=== PATIENT | male | born 1930 | race Caucasian/White ===

== ENCOUNTER 2016-07-10 11:57 | Inpatient (IN) | payer MEDICARE, MEDICAID ==
[2016-07-10 12:04] VITALS: BMI 12.8
[2016-07-10 13:47] LABS: ALB/GLOB RATIO 0.9 (1.0-2.1); ALKALINE PHOSPHATASE 99 U/L (38-126); ALT/SGPT 33 U/L (21-72); AST/SGOT 37 U/L (17-59); BILIRUBIN,TOTAL 0.5 mg/dl (0.2-1.3); BLOOD UREA NITROGEN 12 mg/dl (9-20); CALCIUM 9.2 mg/dL (8.4-10.2); CARBON DIOXIDE 25 mmol/L (22-30); CHLORIDE 98 mmol/L (98-107); GFR AFRICAN-AMERICAN > 60; GLUCOSE,RANDOM 89 mg/dL (75-110); SODIUM 137 mmol/l (132-148); TOTAL PROTEIN 7.7 G/DL (6.3-8.2)
--- NOTE | 2016-07-10 13:51 | ED PDOC ---
HPI: Altered Mental Status Time Seen by Provider: 07/10/16 12:09 Chief Complaint (Nursing): Altered Mental Status Chief Complaint (Provider): dizzy, AMS, poor PO intake History/Exam Limitations: Clinical Condition Onset/Duration Of Symptoms: Unknown Current Symptoms Are (Timing): Still Present Description Of Symptoms: Not At Baseline Usual Baseline: Unknown Exacerbating Factor(s): Unknown Use Of Anticoag/Antiplatlets: Unknown Severity: Moderate Associated Symptoms: Not Eating, Not Drinking. denies: Chills, Vomiting, Diarrhea Additional Complaint(s): 86yo male sent from SNF for altered mental status, poor PO intake and concern for dehydration. History limited as patient has history of dementia. No reports of fever, syncope or diarrhea/vomiting from NH. Past Medical History Reviewed: Historical Data, Nursing Documentation, Vital Signs Vital Signs: Last Vital Signs Temp 97 F L 07/10/16 11:58 Pulse 74 07/10/16 11:58 Resp BP 126/86 07/10/16 11:58 Pulse Ox 99 07/10/16 11:58 - Medical History PMH: Benign Prostatic Hyperplasia, Dementia Denies: Diabetes, Hepatitis, HIV, HTN, Seizures, Sexually Transmitted Disease Other PMH: glaucoma - Surgical History Other surgeries: unknown - Family History Family History: States: Unknown Family Hx - Living Arrangements Living Arrangements: Long Term/Assist Lvng - Social History Current smoker - smoking cessation education provided: No - Immunization History Hx Tetanus Toxoid Vaccination: (unknown) Hx Influenza Vaccination: (unknown) Hx Pneumococcal Vaccination: (unknown) - Home Medications Home Medications: Ambulatory Orders Medication Instructions Recorded Acetaminophen 07/27/13 Alpha Carotene/Aminobenzoic 1 cap PO 07/27/13 [Jillian-Min] Brimonidine 0.2% [Alphagan 0.2% 0 ml 07/27/13 Opht] Docusate Calcium [Tha-Tin] 240 mg PO 07/27/13 Dorzolamide 2% [Trusopt 2% 1 ea OP 07/27/13 Ocumeter Plus] Dutasteride [Avodart] 0.5 mg PO DAILY 07/27/13 Gabapentin 300 mg PO BID 07/27/13 Latanoprost 0.005% Opht [XALATAN 1 drp OP DAILY 07/27/13 2.5 Ml] Magnesium Hydroxide [Milk Of 30 ml PO 07/27/13 Magnesia] Methazolamide [Mzm] 25 mg PO 07/27/13 Peg-400/Propylene Glycol [Systane 1 hiral OP 07/27/13 0.4%-0.3%] Tamsulosin [Flomax] 0.4 mg PO DAILY 07/27/13 Timolol 0.5% Ophth [Timoptic 0.5% 1 drop OP 07/27/13 Ophth Soln] Tramadol Hydrochloride [Tramadol] 50 mg PO 07/27/13 Ciprofloxacin [Cipro] 1 tab PO BID #14 tab 01/12/16 - Allergies Allergies/Adverse Reactions: Allergies Allergy/AdvReac Type Severity Reaction Status Date / Time ammonium alum Allergy RASH Verified 07/10/16 12:00 ammonium lactate Allergy RASH Verified 07/10/16 12:00 [From Lac-Hydrin] cephalexin monohydrate Allergy RASH Verified 07/10/16 12:00 [From Keflex] Review of Systems Review Of Systems: ROS cannot be obtained secondary to pt's inabilty to answer questions. Physical Exam - Reviewed Nursing Documentation Reviewed: Yes Vital Signs Reviewed: Yes - Physical Exam Appears: Positive for: Non-toxic (ill but nontoxic appearing, dry, confused, frail/ cachexia) Head Exam: Positive for: ATRAUMATIC, NORMAL INSPECTION, NORMOCEPHALIC Skin: Positive for: Normal Color, Warm, DRY Eye Exam: Positive for: EOMI, Normal appearance, PERRL ENT: Positive for: Normal ENT Inspection Neck: Positive for: Normal, Painless ROM Cardiovascular/Chest: Positive for: Regular Rate, Rhythm Respiratory: Positive for: CNT, Normal Breath Sounds Gastrointestinal/Abdominal: Positive for: Bowel Sounds, Soft. Negative for: Tenderness, Guarding Back: Positive for: Normal Inspection Extremity: Positive for: Normal ROM, Other (muscle wasting b/l) Neurologic/Psych: Positive for: Alert, Other (generalized weakness, speech intact but confused). Negative for: Aphasia - Laboratory Results Result Diagrams: 07/10/16 13:32 - ECG O2 Sat by Pulse Oximetry: 99 Medical Decision Making Medical Decision Making: workup initiated for AMS/ r/o source infection, dehydration, acute neurologic process. IVF iniated. CT brain ordered. CXR: Accession No. : [id number] Patient Name / ID : MARK CHOI / [id number] Exam Date : 07/10/2016 13:03:19 ( Approved ) Study Comment : Sex / Age : M / 86Y Creator : Lucio Melgar MD Dictator : Lucio Melgar MD Sole Leveling Machine Operator : Lpn Per Diem : Lucio Melgar MD Approver2 : Report Date : 07/10/2016 13:53:14 My Comment : HISTORY: SOB COMPARISON: Comparison made with chest radiograph and CT scan chest 07/21/2011 and 2011 respectively. FINDINGS: LUNGS: Re- demonstrated is elevation left hemidiaphragm possibly due to eventration and exacerbated by of multiple dilated/air-filled loops of on bowel right basilar atelectasis and or scarring with questionable effusion. There is slight volume loss of the right linda thorax with shift of the mediastinum from right to left. . There is also a vague opacity left mid/ upper lung field that could represent atelectasis and or infiltrate. PLEURA: No significant pleural effusion identified, no pneumothorax apparent. CARDIOVASCULAR: Heart remains enlarged. Aorta is ectatic and uncoiled. OSSEOUS STRUCTURES: No significant abnormalities. VISUALIZED UPPER ABDOMEN: Normal. OTHER FINDINGS: None. IMPRESSION: Re- demonstrated is elevation left hemidiaphragm possibly due to eventration and exacerbated by of multiple dilated/air-filled loops of on bowel right basilar atelectasis and or scarring with questionable effusion. There is slight volume loss of the right linda thorax with shift of the mediastinum from right to left. . There is also a vague opacity left mid/ upper lung field that could represent atelectasis and or infiltrate. Will obtain CT imaging when Associate Product Integrity Engineer returned. Endorse Dr Allred 2pm pending CT, remainder labs and likely admission/dispo Disposition - Clinical Impression Clinical Impression: Altered mental status - Patient ED Disposition Is Patient to be Admitted: Transfer of Care - Disposition Disposition: Transfer of Care Disposition Time: 13:56 Condition: GUARDED Patient Signed Over To: Paolo Allred
--- NOTE | 2016-07-10 13:55 | RAD ---
HISTORY: SOB COMPARISON: Comparison made with chest radiograph and CT scan chest 07/21/2011 and 07/26/2011 respectively. FINDINGS: LUNGS: Re- demonstrated is elevation left hemidiaphragm possibly due to eventration and exacerbated by of multiple dilated/air-filled loops of on bowel right basilar atelectasis and or scarring with questionable effusion. There is slight volume loss of the right linda thorax with shift of the mediastinum from right to left. . There is also a vague opacity left mid/ upper lung field that could represent atelectasis and or infiltrate. PLEURA: No significant pleural effusion identified, no pneumothorax apparent. CARDIOVASCULAR: Heart remains enlarged. Aorta is ectatic and uncoiled. OSSEOUS STRUCTURES: No significant abnormalities. VISUALIZED UPPER ABDOMEN: Normal. OTHER FINDINGS: None. IMPRESSION: Re- demonstrated is elevation left hemidiaphragm possibly due to eventration and exacerbated by of multiple dilated/air-filled loops of on bowel right basilar atelectasis and or scarring with questionable effusion. There is slight volume loss of the right linda thorax with shift of the mediastinum from right to left. . There is also a vague opacity left mid/ upper lung field that could represent atelectasis and or infiltrate.
[2016-07-10 14:00] LABS: BASO # 0.1 K/uL (0.0-0.2); BASO % 1.3 % (0.0-2.0); EOS % 0.6 % (0.0-4.0); LYMPH # 1.3 K/uL (1.0-4.3); LYMPH % 17.4 % (20.0-40.0); MEAN CELL VOLUME 92.8 fl (80.0-94.0); MEAN CORPUSCULAR HEMOGLOBIN 30.6 pg (27.0-31.0); MEAN PLATELET VOLUME 7.1 fl (7.2-11.7); MONO # 0.6 K/uL (0.0-0.8); MONO % 7.3 % (0.0-10.0); NEUT # 5.6 K/uL (1.8-7.0); NEUT % 73.4 % (50.0-75.0); NRBC % 0.1 % (0.0-0.0); RED CELL DISTRIBUTION WIDTH 17.2 % (11.5-14.5); WHITE BLOOD COUNT 7.7 K/uL (4.8-10.8)
--- NOTE | 2016-07-10 14:26 | CT ---
PROCEDURE: CT HEAD WITHOUT CONTRAST. HISTORY: r/o ICH COMPARISON: None available. TECHNIQUE: Axial computed tomography images were obtained through the head/brain without intravenous contrast. This CT scan was performed using one or more of the following dose reduction techniques: Automated exposure control, adjustment of the mA and or kV according to patient's size and or use of iterative technique Radiation dose: Total exam DLP = 884.5 mGy-cm. FINDINGS: HEMORRHAGE: No acute parenchymal, subarachnoid or extra-axial hemorrhage. BRAIN: Moderate diffuse/ confluent chronic white matter ischemic changes periventricular white matter ischemic changes seen extending into the deep and subcortical white matter both cerebral hemispheres. There also appears to be some extension of these changes into white matter tracts of both basal nuclei. Mild vascular calcifications are present. VENTRICLES: Moderate generalized volume loss CALVARIUM: No acute calvarial fracture seen. PARANASAL SINUSES: Unremarkable as visualized. No significant inflammatory changes. MASTOID AIR CELLS: Unremarkable as visualized. No inflammatory changes. OTHER FINDINGS: Status post bilateral cataract surgery. There also on small calcifications along the insertion sites of the medial and lateral recti and musculature bilaterally. IMPRESSION: No acute intracranial hemorrhage. Moderate chronic white matter ischemic changes with a ischemic changes seen extending into the basal nuclei as well. Moderate generalized volume loss
--- NOTE | 2016-07-10 14:34 | ED PDOC ---
- Laboratory Results Result Diagrams: 07/11/16 05:30 07/10/16 13:32 - ECG O2 Sat by Pulse Oximetry: 99 - Radiology X-Ray: Viewed By Me, Read By Radiologist X-Ray Interpretation: Infiltrates - CT Scan/US CT head Other Rad Studies (CT/US): Read By Radiologist, Radiology Report Reviewed Other Rad Interpretation: no acute findings - Progress Re-evaluation Time: 16:50 Condition: Re-examined, Unchanged Medical Decision Making Medical Decision Making: Time: 1400 Patient signed out by Dr. Love pending re-evaluation and final disposition Patient refuses CT abdomen at this time. Scribe Attestation: Documented by Sharri Beyer acting as a scribe for Paolo Allred MD MD Scribe Attestation: All medical record entries made by the Scribe were at my direction and personally dictated by me. I have reviewed the chart and agree that the record accurately reflects my personal performance of the history, physical exam, medical decision making, and the department course for this patient. I have also personally directed, reviewed, and agree with the discharge instructions and disposition. Disposition Discussed With : Raad Beyer Doctor Will See Patient In The: ED - Clinical Impression Clinical Impression: Altered mental status, UTI (urinary tract infection), Lung infiltrate - POA Present On Arrival: None - Disposition Disposition: Admitted as In-Patient Disposition Time: 17:00 Condition: FAIR
[2016-07-10] MEDS ORDERED: Iohexol 240 (50 ml) PO ONE (15:15)
[2016-07-10] MEDS ORDERED: Iohexol 240 (50 ml) ONE (15:29)
[2016-07-10 15:57] LABS: RBC URINE 6 /hpf (0-3); URINE BILIRUBIN NEGATIVE (NEGATIVE); URINE BLOOD NEGATIVE (NEGATIVE); URINE COLOR YELLOW (YELLOW); URINE GLUCOSE (UA) NEG (Normal); URINE KETONE NEGATIVE (NEGATIVE); URINE LEUKOCYTE ESTERASE LARGE Leu/uL (Negative); URINE PROTEIN NEGATIVE (NEGATIVE); URINE UROBILINOGEN 0.2-1.0 mg/dL (0.2-1.0); WBC URINE 42 /hpf (0-5)
[2016-07-10] MEDS ORDERED: Sodium Chloride 0.9% 0 ML IV ONE (18:32)
[2016-07-10] MEDS ORDERED: Iohexol 300 100 ML IJ ONE (18:32)
[2016-07-10] MEDS ORDERED: Magnesium Hydroxide Susp 30 ml UD PO PRN ×2 (22:29→22:51)
--- NOTE | 2016-07-10 22:32 | CP.PCM.HP ---
History of Present Illness - History of Present Illness History of Present Illness: CC: AMS 86 y/o M, brought to ER [facility] via EMS to be evaluated for AMS. Unknown onset. PT was sent from [facility] on 07/10/16 after they noticed Pt with increased confusion and worsening symptoms of poor po intake, as per NH, Pt no drinking or eating. Limited history information 2nd to Pt inability to answer questions. Do not shows: Fever, chills, n/v/d, abdominal pain, CP, SOB. PMHx: Dementia, Chronic venous insufficiency, Glaucoma ( Legally blind b/l), chronic back pain, Hx of falls. CXR + Elevation left hemidiaphragm, PNA CT Head: No acute intracranial hemorrhage. Present on Admission - Present on Admission Any Indicators Present on Admission: No Review of Systems - Review of Systems Systems not reviewed;Unavailable: Acuity of Condition, Altered Mental Status Past Patient History - Infectious Disease Hx of Infectious Diseases: None - Past Medical History & Family History Pertinent Family History: unknown - Past Social History Smoking Status: Unknown If Ever Smoked Alcohol: None Drugs: Denies Home Situation {Lives}: Assisted - CARDIAC Hx Cardiac Disorders: No - PULMONARY Hx Respiratory Disorders: No - NEUROLOGICAL Hx Neurological Disorder: Yes (dementia) - HEENT Hx HEENT Problems: Yes - RENAL Hx Chronic Kidney Disease: No - ENDOCRINE/METABOLIC Hx Endocrine Disorders: No - HEMATOLOGICAL/ONCOLOGICAL Hx Blood Disorders: No - INTEGUMENTARY Hx Dermatological Problems: No - MUSCULOSKELETAL/RHEUMATOLOGICAL Hx Musculoskeletal Disorders: No - GASTROINTESTINAL Hx Gastrointestinal Disorders: Yes Hx Constipation: Yes - GENITOURINARY/GYNECOLOGICAL Hx Genitourinary Disorders: Yes (bph) - PSYCHIATRIC Hx Psychophysiologic Disorder: No - SURGICAL HISTORY Hx Surgeries: No Hx Abdominal Aortic Aneurysm Repair: No - ANESTHESIA Hx Anesthesia: No Meds Allergies/Adverse Reactions: Allergies Allergy/AdvReac Type Severity Reaction Status Date / Time ammonium alum Allergy RASH Verified 07/10/16 12:00 ammonium lactate Allergy RASH Verified 07/10/16 12:00 [From Lac-Hydrin] cephalexin monohydrate Allergy RASH Verified 07/10/16 12:00 [From Keflex] Physical Exam - Constitutional Appears: No Acute Distress - Head Exam Head Exam: NORMAL INSPECTION - Eye Exam Eye Exam: PERRL Pupil Exam: Mydriatic - ENT Exam ENT Exam: Normal Oropharynx - Neck Exam Neck exam: Positive for: Normal Inspection - Respiratory Exam Respiratory Exam: Rhonchi (scattered) - Cardiovascular Exam Cardiovascular Exam: REGULAR RHYTHM - GI/Abdominal Exam GI & Abdominal Exam: Normal Bowel Sounds, Soft - Extremities Exam Additional comments: Discoloration lower extremities, L heel redness. - Back Exam Additional comments: Sacrum redness. - Neurological Exam Additional comments: Generalized weakness. confused, disoriented - Skin Skin Exam: Warm Results - Vital Signs Recent Vital Signs: Last Vital Signs Temp 97 F L 07/10/16 11:58 Pulse 96 H 07/10/16 20:00 Resp 16 07/10/16 20:00 BP 130/90 07/10/16 20:00 Pulse Ox 99 07/10/16 20:39 reviewed J.P. - Labs Result Diagrams: 07/12/16 08:30 07/12/16 08:30 Labs: reviewed J.P. - EKG Data EKG comments: reviewed J.P. - Imaging and Cardiology Chest x-ray Status: Report reviewed by me (Audrey) CT scan - head Status: Report reviewed by me (Audrey) Assessment & Plan - Assessment and Plan (Free Text) Assessment: AMS Acute high PNA acute high UTI Acute high Dementia Chronic Chronic venous insufficiency Chronic. BPH Chronic Constipation Chronic. Plan: Continue Levaquin, tramadol, f/u Blood and U C-S, f/u Psychiatric and Neuro consult. - Date & Time Date: 07/10/16
[2016-07-11] MEDS ORDERED: TRAMADOL HYDROCHLORIDE 50 MG PO SCH (04:00)
[2016-07-11 07:37] LABS: HEMATOCRIT 40.2 % (35.0-51.0); MEAN CELL VOLUME 92.6 fl (80.0-94.0); MEAN CORPUSCULAR HGB CONC 33.4 g/dL (33.0-37.0); WHITE BLOOD COUNT 6.5 K/uL (4.8-10.8)
[2016-07-11 07:45] LABS: T4 5.95 ug/dl (5.5-11.0)
[2016-07-11 07:59] LABS: THYROID STIMULATING HORMONE 7.35 mIU/ML (0.46-4.68)
[2016-07-11] MEDS ORDERED: BULGARICUS PO SCH (09:00)
[2016-07-11] MEDS ORDERED: ACIDOPHILUS PO SCH (09:00)
[2016-07-11] MEDS ORDERED: [UNRECOGNIZED DRUG - OTHER] PO SCH (09:00)
[2016-07-11] MEDS ORDERED: DOCUSATE CALCIUM 240 MG PO SCH (09:00)
[2016-07-11] MEDS ORDERED: METHAZOLAMIDE 25 MG PO SCH (09:00)
--- NOTE | 2016-07-11 09:02 | CARD ---
APPROVED REPORT EKG Measurement Heart [id number] <Conclusion> Normal sinus rhythm Right bundle branch block Possible Lateral infarct, age undetermined Abnormal ECG
[2016-07-11] MEDS: Multivitamin With Minerals Tab PO SCH (09:28)
[2016-07-11] MEDS: Enoxaparin 40 mg Syringe SC SCH (09:30)
--- NOTE | 2016-07-11 09:41 | CP.PCM.CON ---
History of Present Illness - History of Present Illness History of Present Illness: Mr. Ly is an 86-year-old man with a past medical history of dementia who was referred to the ED from a snf facility after they noted he was more confused than usual, and has been having decreased PO intake with likely dehydration. Today, the patient was alert and awake. He recalled that yesterday was his birthday and hat he turned 86. He was pleasant and conversant and said that he has trouble with eating due to gastric pain and constipation. He admitted to me that he is completely blind and may get confused sometimes due to the lack of visual input. He did not have any other complaints. Review of Systems - Review of Systems All systems: reviewed and no additional remarkable complaints except - Constitutional Constitutional: As Per HPI - EENT Eyes: As Per HPI Nose/Mouth/Throat: Dry Mouth, Dysphagia, Halitosis - Cardiovascular Cardiovascular: absent: As Per HPI, Acrocyanosis, Chest Pain, Chest Pain at Rest , Chest Pain with Activity, Claudication, Diaphoresis, Dyspnea, Dyspnea on Exertion, Edema, Irregular Heart Rhythm, Pain Radiating to Arm/Neck/Jaw, Leg Edema, Leg Ulcers, Lightheadedness, Orthopnea, Palpitations, Paroxysmal Nocturnal Dyspnea, Pedal Edema, Radiating Pain, Rapid Heart Rate, Slow Heart Rate, Syncope, Other - Respiratory Respiratory: Cough, Dyspnea on Exertion, Chest Congestion - Neurological Neurological: As Per HPI Past Patient History - Infectious Disease Hx of Infectious Diseases: None - Past Medical History & Family History Past Medical History?: Yes - Past Social History Smoking Status: Unknown If Ever Smoked - CARDIAC Hx Cardiac Disorders: No - PULMONARY Hx Respiratory Disorders: No - NEUROLOGICAL Hx Neurological Disorder: Yes (dementia) - HEENT Hx HEENT Problems: Yes Hx Blind: Yes Hx Glaucoma: Yes (BOTH EYES) - RENAL Hx Chronic Kidney Disease: No - ENDOCRINE/METABOLIC Hx Endocrine Disorders: No - HEMATOLOGICAL/ONCOLOGICAL Hx Blood Disorders: No - INTEGUMENTARY Hx Dermatological Problems: No Other/Comment: chronic venous insufficiency - MUSCULOSKELETAL/RHEUMATOLOGICAL Hx Falls: Yes - GENITOURINARY/GYNECOLOGICAL Hx Genitourinary Disorders: Yes (bph) Hx Prostate Problems: Yes (BPH) - PSYCHIATRIC Hx Psychophysiologic Disorder: No - SURGICAL HISTORY Hx Surgeries: No Hx Abdominal Aortic Aneurysm Repair: No - ANESTHESIA Hx Anesthesia: No Meds Allergies/Adverse Reactions: Allergies Allergy/AdvReac Type Severity Reaction Status Date / Time ammonium alum Allergy RASH Verified 07/10/16 12:00 ammonium lactate Allergy RASH Verified 07/10/16 12:00 [From Lac-Hydrin] cephalexin monohydrate Allergy RASH Verified 07/10/16 12:00 [From Keflex] - Medications Medications: Current Medications Bisacodyl (Dulcolax) 10 mg MO DAILY PRN PRN Reason: Constipation Brimonidine Tartrate (Alphagan 0.2% Opht) 1 drop OU Q12 RAJINDER Docusate Sodium (Colace) 200 mg PO DAILY RAJINDER Dorzolamide HCl (Trusopt) 1 drop OU Q12 RAJINDER Enoxaparin Sodium (Lovenox) 40 mg SC DAILY RAJINDER PRN Reason: Protocol Home Med (Dutasteride [Avodart]) 0.5 mg PO DAILY RAJINDER Levofloxacin/Dextrose (Levaquin 750mg) 150 mls @ 100 mls/hr IVPB DAILY RAJINDER Lactobacillus Acidophilus (Bacid Acidophilus) 1 cap PO BID RAJINDER Latanoprost (Xalatan Opht) 1 drop OU DAILY RAJINDER Magnesium Hydroxide (Milk Of Magnesia) 30 ml PO DAILY PRN PRN Reason: Constipation Methazolamide (Neptazane) 25 mg PO DAILY [facility] Multivitamins/Minerals (Therapeutic-M Tab) 1 tab PO DAILY RAJINDER Tamsulosin HCl (Flomax) 0.4 mg PO DAILY RAJINDER Timolol Maleate (Timoptic 0.5% Ophth Soln) 1 drop OU BID RAJINDER Tramadol HCl (Ultram) 50 mg PO Q6 PRN PRN Reason: Pain, moderate (4-7) Physical Exam - Constitutional Appears: Well - Head Exam Head Exam: ATRAUMATIC, NORMAL INSPECTION, NORMOCEPHALIC - Eye Exam Eye Exam: EOMI, Normal appearance, PERRL. absent: Conjunctival injection, Nystagmus, Periorbital swelling, Periorbital tenderness, Scleral icterus - Cardiovascular Exam Cardiovascular Exam: REGULAR RHYTHM - Neurological Exam Neurological exam: Alert, CN II-XII Intact, Normal Gait, Oriented x3, Reflexes Normal Additional comments: Recalls 1/3 objects after delay, spells WORLD forward, not backward, oriented to place, time and person. Results - Vital Signs Recent Vital Signs: Last Vital Signs Temp 97.6 F 07/11/16 08:09 Pulse 80 07/11/16 08:09 Resp 20 07/11/16 08:09 BP 115/82 07/11/16 08:09 Pulse Ox 96 07/11/16 08:09 - Labs Result Diagrams: 07/11/16 05:30 07/10/16 13:32 Labs: Laboratory Results - last 24 hr 07/11/16 05:30 WBC 6.5 RBC 4.34 L Hgb 13.4 Hct 40.2 MCV 92.6 MCH 31.0 MCHC 33.4 RDW 17.0 H Plt Count 339 Triglycerides 104 Cholesterol 209 H LDL Cholesterol Direct 123 HDL Cholesterol 47 Vitamin B12 949 H Thyroxine (T4) 5.95 TSH 3rd Generation 7.35 H - Imaging and Cardiology CT scan - head Status: Image reviewed by me, Report reviewed by me (Chronic ischemic changes and age related atrophy) Assessment & Plan (1) Altered mental status Assessment and Plan: Likely toxic-metabolic in origin. Treat underlying condition. Could also be due to sun-downing with underlying dementia. Continue conservative management and care. Rehydrate, provide adequate nutrition with appropriate protein per nutritional consultation. Status: Acute Priority: Medium (2) Dementia Assessment and Plan: Continue conservative management and provide assistance with more auditory support since the patient is blind. Status: Chronic
[2016-07-11] MEDS: Dorzolamide 2% Ophth Soln OU SCH ×2 (11:14→21:54)
[2016-07-11] MEDS: Brimonidine 0.2% 50 DROP/5 ML BOTTLE OU SCH ×2 (11:15→21:54)
[2016-07-11] MEDS: Lactobacillus Acidophilus 500 MU Cap PO SCH ×2 (11:16→17:35)
[2016-07-11] MEDS: Latanoprost 0.005% Opht SOUTION OU SCH (17:37)
--- NOTE | 2016-07-11 19:37 | CP.PCM.PN ---
Subjective - Subjective Subjective: Confused Objective - Vital Signs/Intake and Output Vital Signs (last 24 hours): Temp Pulse Resp BP Pulse Ox 97.4 F L 106 H 20 119/79 99 07/11/16 17:17 07/11/16 17:17 07/11/16 17:17 07/11/16 17:17 07/11/16 17:17 - Medications Medications: Current Medications Bisacodyl (Dulcolax) 10 mg GA DAILY PRN PRN Reason: Constipation Brimonidine Tartrate (Alphagan 0.2% Opht) 1 drop OU Q12 [facility] Last Admin: 07/11/16 11:15 Dose: 1 drop Docusate Sodium (Colace) 200 mg PO DAILY [facility] Last Admin: 07/11/16 09:29 Dose: 200 mg Dorzolamide HCl (Trusopt) 1 drop OU Q12 [facility] Last Admin: 07/11/16 11:14 Dose: 1 drop Enoxaparin Sodium (Lovenox) 40 mg SC DAILY [facility] PRN Reason: Protocol Last Admin: 07/11/16 09:30 Dose: 40 mg Home Med (Dutasteride [Avodart]) 0.5 mg PO DAILY [facility] Levofloxacin/Dextrose (Levaquin 750mg) 150 mls @ 100 mls/hr IVPB DAILY [facility] Last Admin: 07/11/16 09:29 Dose: 100 mls/hr Lactobacillus Acidophilus (Bacid Acidophilus) 1 cap PO BID [facility] Last Admin: 07/11/16 17:35 Dose: 1 cap Latanoprost (Xalatan Opht) 1 drop OU DAILY [facility] Last Admin: 07/11/16 17:37 Dose: 1 drop Magnesium Hydroxide (Milk Of Magnesia) 30 ml PO DAILY PRN PRN Reason: Constipation Methazolamide (Neptazane) 25 mg PO DAILY [facility] Last Admin: 07/11/16 09:31 Dose: 25 mg Multivitamins/Minerals (Therapeutic-M Tab) 1 tab PO DAILY [facility] Last Admin: 07/11/16 09:28 Dose: 1 tab Tamsulosin HCl (Flomax) 0.4 mg PO DAILY [facility] Last Admin: 07/11/16 09:28 Dose: 0.4 mg Timolol Maleate (Timoptic 0.5% Ophth Soln) 1 drop OU BID [facility] Last Admin: 07/11/16 17:36 Dose: 1 drop Tramadol HCl (Ultram) 50 mg PO Q6 PRN PRN Reason: Pain, moderate (4-7) - Labs Labs: 07/11/16 05:30 - Constitutional Appears: No Acute Distress - Head Exam Head Exam: NORMAL INSPECTION - Eye Exam Eye Exam: PERRL - ENT Exam ENT Exam: Normal Exam - Neck Exam Neck Exam: Normal Inspection - Respiratory Exam Respiratory Exam: Rhonchi Additional comments: scattered - Cardiovascular Exam Cardiovascular Exam: REGULAR RHYTHM - GI/Abdominal Exam GI & Abdominal Exam: Soft, Normal Bowel Sounds - Extremities Exam Additional comments: Chronic legs skin changes - Back Exam Back Exam: NORMAL INSPECTION - Neurological Exam Additional comments: Confused , no focal motor/sensory deficit - Psychiatric Exam Additional comments: confused - Skin Skin Exam: Warm Assessment and Plan - Assessment and Plan (Free Text) Plan: AMS PNA UTI Dementia Chronic Venous insufficiency BPH Plan: Continue Lorazepam , Tramadol , Levaquin and rest of treatment
[2016-07-12 09:14] LABS: HEMATOCRIT 44.1 % (35.0-51.0); MEAN CELL VOLUME 92.5 fl (80.0-94.0); MEAN CORPUSCULAR HEMOGLOBIN 30.7 pg (27.0-31.0); MEAN CORPUSCULAR HGB CONC 33.2 g/dL (33.0-37.0); RED CELL DISTRIBUTION WIDTH 16.8 % (11.5-14.5); WHITE BLOOD COUNT 5.8 K/uL (4.8-10.8)
[2016-07-12 09:36] LABS: ALB/GLOB RATIO 0.9 (1.0-2.1); ALKALINE PHOSPHATASE 113 U/L (38-126); ALT/SGPT 25 U/L (21-72); AST/SGOT 31 U/L (17-59); BILIRUBIN,TOTAL 0.7 mg/dl (0.2-1.3); BLOOD UREA NITROGEN 15 mg/dl (9-20); CALCIUM 9.6 mg/dL (8.4-10.2); CARBON DIOXIDE 23 mmol/L (22-30); CHLORIDE 98 mmol/L (98-107); GFR AFRICAN-AMERICAN > 60; GLUCOSE,RANDOM 109 mg/dL (75-110); POTASSIUM 3.9 MMOL/L (3.6-5.0); SODIUM 137 mmol/l (132-148); TOTAL PROTEIN 7.9 G/DL (6.3-8.2)
[2016-07-12] MEDS: Enoxaparin 40 mg Syringe SC SCH (10:52)
[2016-07-12] MEDS: Brimonidine 0.2% 50 DROP/5 ML BOTTLE OU SCH ×2 (10:54→20:40)
[2016-07-12] MEDS: Multivitamin With Minerals Tab PO SCH (10:55)
[2016-07-12] MEDS: Dorzolamide 2% Ophth Soln OU SCH ×2 (10:58→20:45)
[2016-07-12] MEDS: Lactobacillus Acidophilus 500 MU Cap PO SCH ×2 (11:03→18:53)
[2016-07-12] MEDS: Latanoprost 0.005% Opht SOUTION OU SCH (14:07)
--- NOTE | 2016-07-12 15:13 | CP.PCM.PN ---
Subjective - Date & Time of Evaluation Date of Evaluation: 07/12/16 Time of Evaluation: 15:10 - Subjective Subjective: No AD , confused Objective - Vital Signs/Intake and Output Vital Signs (last 24 hours): Temp Pulse Resp BP Pulse Ox 97.7 F 63 20 121/85 95 07/12/16 07:48 07/12/16 09:00 07/12/16 07:48 07/12/16 09:00 07/12/16 07:48 - Medications Medications: Current Medications Bisacodyl (Dulcolax) 10 mg OK DAILY PRN PRN Reason: Constipation Brimonidine Tartrate (Alphagan 0.2% Opht) 1 drop OU Q12 [facility] Last Admin: 07/12/16 10:54 Dose: 1 drop Docusate Sodium (Colace Liquid) 200 mg PO DAILY [facility] Last Admin: 07/12/16 14:10 Dose: 200 mg Dorzolamide HCl (Trusopt) 1 drop OU Q12 [facility] Last Admin: 07/12/16 10:58 Dose: 1 drop Enoxaparin Sodium (Lovenox) 40 mg SC DAILY [facility] PRN Reason: Protocol Last Admin: 07/12/16 10:52 Dose: 40 mg Home Med (Dutasteride [Avodart]) 0.5 mg PO DAILY [facility] Levofloxacin/Dextrose (Levaquin 750mg) 150 mls @ 100 mls/hr IVPB DAILY [facility] Last Admin: 07/12/16 13:41 Dose: 100 mls/hr Lactobacillus Acidophilus (Bacid Acidophilus) 1 cap PO BID [facility] Last Admin: 07/12/16 11:03 Dose: 1 cap Latanoprost (Xalatan Opht) 1 drop OU DAILY [facility] Last Admin: 07/12/16 14:07 Dose: 1 drop Lorazepam (Ativan) 0.5 mg IVP Q4 PRN PRN Reason: Agitation Magnesium Hydroxide (Milk Of Magnesia) 30 ml PO DAILY PRN PRN Reason: Constipation Methazolamide (Neptazane) 25 mg PO DAILY [facility] Last Admin: 07/12/16 10:55 Dose: 25 mg Multivitamins/Minerals (Therapeutic-M Tab) 1 tab PO DAILY [facility] Last Admin: 07/12/16 10:55 Dose: 1 tab Tamsulosin HCl (Flomax) 0.4 mg PO DAILY [facility] Last Admin: 07/12/16 10:55 Dose: 0.4 mg Timolol Maleate (Timoptic 0.5% Ophth Soln) 1 drop OU BID [facility] Last Admin: 07/12/16 10:55 Dose: 1 drop Tramadol HCl (Ultram) 50 mg PO Q6 PRN PRN Reason: Pain, moderate (4-7) Last Admin: 07/11/16 22:05 Dose: 50 mg - Labs Labs: 07/12/16 08:30 07/12/16 08:30 - Constitutional Appears: Chronically Ill - Head Exam Head Exam: NORMAL INSPECTION - Eye Exam Eye Exam: PERRL - ENT Exam ENT Exam: Normal Exam - Neck Exam Neck Exam: Normal Inspection - Respiratory Exam Respiratory Exam: Rhonchi (scattered) - Cardiovascular Exam Cardiovascular Exam: REGULAR RHYTHM - GI/Abdominal Exam GI & Abdominal Exam: Soft, Normal Bowel Sounds - Extremities Exam Additional comments: chronic skin legs changes - Back Exam Back Exam: NORMAL INSPECTION - Neurological Exam Additional comments: confused , no focal motor/sensory deficit , generalized weakness - Psychiatric Exam Additional comments: confused - Skin Skin Exam: Warm Assessment and Plan - Assessment and Plan (Free Text) Assessment: AMS PNA UTI Dementia Chronic venous insufficiency BPH Constipation Plan: Continue Levaquin , Tramadol and rest of treatment
[2016-07-13] MEDS: Latanoprost 0.005% Opht SOUTION OU SCH (08:08)
[2016-07-13] MEDS: Lactobacillus Acidophilus 500 MU Cap PO SCH ×2 (08:11→16:16)
[2016-07-13] MEDS: Enoxaparin 40 mg Syringe SC SCH (08:11)
[2016-07-13] MEDS: Dorzolamide 2% Ophth Soln OU SCH ×2 (08:13→20:48)
[2016-07-13] MEDS: Multivitamin With Minerals Tab PO SCH (08:17)
[2016-07-13] MEDS: Brimonidine 0.2% 50 DROP/5 ML BOTTLE OU SCH ×2 (08:17→20:51)
[2016-07-13 08:37] VITALS: RESP 20
--- NOTE | 2016-07-13 14:34 | CP.PCM.CON ---
History of Present Illness - History of Present Illness History of Present Illness: psychiatry consult ordered by dr. lyles reason: ms changes hpi: pt with dementia. he is in a longterm. he is admitted medically with a uti. not on psych meds. he has also been seen recently by neurology. he is having some sundowning. he is a poor historian. past psych: dementia. not on psych meds social: lives in longterm medical: see dr. lyles's note mse: alert, oriented to self. denies suicidal thoughts. denies a/v hallucinations. memory is impaired. poor i/j. assessment: dementia without behavioral disturbance delirium - mild recommendation: low dose risperdal for agitation being followed by neurology will sign off Past Patient History - Infectious Disease Hx of Infectious Diseases: None - Past Medical History & Family History Past Medical History?: Yes - Past Social History Smoking Status: Unknown If Ever Smoked Alcohol: None Drugs: Denies Home Situation {Lives}: Long-Term - CARDIAC Hx Cardiac Disorders: No - PULMONARY Hx Respiratory Disorders: No - NEUROLOGICAL Hx Neurological Disorder: Yes (dementia) - HEENT Hx HEENT Problems: Yes - RENAL Hx Chronic Kidney Disease: No - ENDOCRINE/METABOLIC Hx Endocrine Disorders: No - HEMATOLOGICAL/ONCOLOGICAL Hx Blood Disorders: No - INTEGUMENTARY Hx Dermatological Problems: No - MUSCULOSKELETAL/RHEUMATOLOGICAL Hx Musculoskeletal Disorders: No - GASTROINTESTINAL Hx Gastrointestinal Disorders: Yes Hx Constipation: Yes - GENITOURINARY/GYNECOLOGICAL Hx Genitourinary Disorders: Yes (bph) - PSYCHIATRIC Hx Psychophysiologic Disorder: No - SURGICAL HISTORY Hx Surgeries: No Hx Abdominal Aortic Aneurysm Repair: No - ANESTHESIA Hx Anesthesia: No Meds Allergies/Adverse Reactions: Allergies Allergy/AdvReac Type Severity Reaction Status Date / Time ammonium alum Allergy RASH Verified 07/10/16 12:00 ammonium lactate Allergy RASH Verified 07/10/16 12:00 [From Lac-Hydrin] cephalexin monohydrate Allergy RASH Verified 07/10/16 12:00 [From Keflex] - Medications Medications: Current Medications Bisacodyl (Dulcolax) 10 mg AR DAILY PRN PRN Reason: Constipation Brimonidine Tartrate (Alphagan 0.2% Opht) 1 drop OU Q12 [facility] Last Admin: 07/13/16 08:17 Dose: 1 drop Docusate Sodium (Colace Liquid) 200 mg PO DAILY [facility] Last Admin: 07/13/16 08:13 Dose: 200 mg Dorzolamide HCl (Trusopt) 1 drop OU Q12 [facility] Last Admin: 07/13/16 08:13 Dose: 1 drop Enoxaparin Sodium (Lovenox) 40 mg SC DAILY [facility] PRN Reason: Protocol Last Admin: 07/13/16 08:11 Dose: 40 mg Finasteride (Proscar) 5 mg PO DAILY [facility] Levofloxacin/Dextrose (Levaquin 750mg) 150 mls @ 100 mls/hr IVPB DAILY [facility] Last Admin: 07/13/16 08:18 Dose: 100 mls/hr Lactobacillus Acidophilus (Bacid Acidophilus) 1 cap PO BID [facility] Last Admin: 07/13/16 08:11 Dose: 1 cap Latanoprost (Xalatan Opht) 1 drop OU DAILY [facility] Last Admin: 07/13/16 08:08 Dose: 1 drop Lorazepam (Ativan) 0.5 mg IVP Q4 PRN PRN Reason: Agitation Magnesium Hydroxide (Milk Of Magnesia) 30 ml PO DAILY PRN PRN Reason: Constipation Methazolamide (Neptazane) 25 mg PO DAILY [facility] Last Admin: 07/13/16 08:18 Dose: 25 mg Multivitamins/Minerals (Therapeutic-M Tab) 1 tab PO DAILY [facility] Last Admin: 07/13/16 08:17 Dose: 1 tab Risperidone (Risperidone Odt 0.25mg) 0.25 mg PO Q8 PRN PRN Reason: Agitation Tamsulosin HCl (Flomax) 0.4 mg PO DAILY [facility] Last Admin: 07/13/16 08:20 Dose: 0.4 mg Timolol Maleate (Timoptic 0.5% [facility]) 1 drop OU BID [facility] Last Admin: 07/13/16 08:25 Dose: 1 drop Tramadol HCl (Ultram) 50 mg PO Q6 PRN PRN Reason: Pain, moderate (4-7) Last Admin: 07/11/16 22:05 Dose: 50 mg Results - Vital Signs Recent Vital Signs: Last Vital Signs Temp 97.8 F 07/13/16 08:36 Pulse 82 07/13/16 08:36 Resp 20 07/13/16 08:36 BP 124/85 07/13/16 08:36 Pulse Ox 95 07/13/16 08:36 - Labs Result Diagrams: 07/12/16 08:30 07/12/16 08:30
--- NOTE | 2016-07-13 16:55 | CP.PCM.PN ---
Subjective - Date & Time of Evaluation Date of Evaluation: 07/13/16 Time of Evaluation: 13:00 - Subjective Subjective: F/u AMS. Pt awake, confused. Objective - Vital Signs/Intake and Output Vital Signs (last 24 hours): Temp Pulse Resp BP Pulse Ox 97.8 F 82 20 124/85 95 07/13/16 08:36 07/13/16 08:36 07/13/16 08:36 07/13/16 08:36 07/13/16 08:36 - Medications Medications: Current Medications Bisacodyl (Dulcolax) 10 mg IN DAILY PRN PRN Reason: Constipation Brimonidine Tartrate (Alphagan 0.2% Opht) 1 drop OU Q12 [facility] Last Admin: 07/13/16 08:17 Dose: 1 drop Docusate Sodium (Colace Liquid) 200 mg PO DAILY [facility] Last Admin: 07/13/16 08:13 Dose: 200 mg Dorzolamide HCl (Trusopt) 1 drop OU Q12 [facility] Last Admin: 07/13/16 08:13 Dose: 1 drop Enoxaparin Sodium (Lovenox) 40 mg SC DAILY [facility] PRN Reason: Protocol Last Admin: 07/13/16 08:11 Dose: 40 mg Finasteride (Proscar) 5 mg PO DAILY [facility] Last Admin: 07/13/16 16:17 Dose: 5 mg Levofloxacin/Dextrose (Levaquin 750mg) 150 mls @ 100 mls/hr IVPB DAILY [facility] Last Admin: 07/13/16 08:18 Dose: 100 mls/hr Lactobacillus Acidophilus (Bacid Acidophilus) 1 cap PO BID [facility] Last Admin: 07/13/16 16:16 Dose: 1 cap Latanoprost (Xalatan Opht) 1 drop OU DAILY [facility] Last Admin: 07/13/16 08:08 Dose: 1 drop Lorazepam (Ativan) 0.5 mg IVP Q4 PRN PRN Reason: Agitation Magnesium Hydroxide (Milk Of Magnesia) 30 ml PO DAILY PRN PRN Reason: Constipation Methazolamide (Neptazane) 25 mg PO DAILY [facility] Last Admin: 07/13/16 08:18 Dose: 25 mg Multivitamins/Minerals (Therapeutic-M Tab) 1 tab PO DAILY [facility] Last Admin: 07/13/16 08:17 Dose: 1 tab Risperidone (Risperidone Odt 0.25mg) 0.25 mg PO Q8 PRN PRN Reason: Agitation Tamsulosin HCl (Flomax) 0.4 mg PO DAILY [facility] Last Admin: 07/13/16 08:20 Dose: 0.4 mg Timolol Maleate (Timoptic 0.5% Ophth Soln) 1 drop OU BID [facility] Last Admin: 07/13/16 16:31 Dose: 1 drop Tramadol HCl (Ultram) 50 mg PO Q6 PRN PRN Reason: Pain, moderate (4-7) Last Admin: 07/11/16 22:05 Dose: 50 mg - Labs Labs: 07/12/16 08:30 07/12/16 08:30 - Constitutional Appears: Chronically Ill - Head Exam Head Exam: NORMAL INSPECTION - Eye Exam Eye Exam: PERRL - ENT Exam ENT Exam: Normal Exam - Neck Exam Neck Exam: Normal Inspection - Respiratory Exam Respiratory Exam: Rhonchi (scattered) - Cardiovascular Exam Cardiovascular Exam: REGULAR RHYTHM - GI/Abdominal Exam GI & Abdominal Exam: Soft, Normal Bowel Sounds - Extremities Exam Additional comments: Chronic skin legs changes. - Back Exam Back Exam: NORMAL INSPECTION - Neurological Exam Additional comments: Confused, no focal motor/sensory deficit, generalized weakness. - Skin Skin Exam: Warm Assessment and Plan - Assessment and Plan (Free Text) Assessment: AMS PNA UTI Dementia Chronic venous insufficiency BPH Constipation Plan: Continue Levaquin, Tramadol, Risperdal, Ativan and rest of Tx.
[2016-07-13] MEDS: RISPERIDONE 0.25 MG ODT PO PRN (20:53)
[2016-07-14 08:27] VITALS: BP 118/73; PULSE 82; TEMP 97.4; O2SAT 96
[2016-07-14] MEDS: RISPERIDONE 0.25 MG ODT PO PRN (09:11)
[2016-07-14] MEDS: Multivitamin With Minerals Tab PO SCH (09:11)
[2016-07-14] MEDS: Enoxaparin 40 mg Syringe SC SCH (09:12)
[2016-07-14] MEDS: Dorzolamide 2% Ophth Soln OU SCH (09:13)
[2016-07-14] MEDS: Brimonidine 0.2% 50 DROP/5 ML BOTTLE OU SCH (09:14)
[2016-07-14] MEDS: Latanoprost 0.005% Opht SOUTION OU SCH (09:17)
[2016-07-14] MEDS: Lactobacillus Acidophilus 500 MU Cap PO SCH (09:20)
--- NOTE | 2016-07-14 17:07 | CP.PCM.PN ---
Subjective - Date & Time of Evaluation Date of Evaluation: 07/14/16 Time of Evaluation: 11:40 - Subjective Subjective: F/u AMS. Awake , less confused , no AD , N/C Objective - Vital Signs/Intake and Output Vital Signs (last 24 hours): Temp Pulse Resp BP Pulse Ox 97.4 F L 82 20 118/73 96 07/14/16 08:26 07/14/16 08:26 07/14/16 08:26 07/14/16 08:26 07/14/16 08:26 - Medications Medications: Current Medications Bisacodyl (Dulcolax) 10 mg ID DAILY PRN PRN Reason: Constipation Brimonidine Tartrate (Alphagan 0.2% Opht) 1 drop OU Q12 [facility] Last Admin: 07/14/16 09:14 Dose: 1 drop Docusate Sodium (Colace Liquid) 200 mg PO DAILY [facility] Last Admin: 07/14/16 09:14 Dose: 200 mg Dorzolamide HCl (Trusopt) 1 drop OU Q12 [facility] Last Admin: 07/14/16 09:13 Dose: 1 drop Finasteride (Proscar) 5 mg PO DAILY [facility] Last Admin: 07/14/16 09:15 Dose: 5 mg Levofloxacin/Dextrose (Levaquin 750mg) 150 mls @ 100 mls/hr IVPB DAILY [facility] Last Admin: 07/13/16 08:18 Dose: 100 mls/hr Lactobacillus Acidophilus (Bacid Acidophilus) 1 cap PO BID [facility] Last Admin: 07/14/16 09:20 Dose: 1 cap Latanoprost (Xalatan Opht) 1 drop OU DAILY [facility] Last Admin: 07/14/16 09:17 Dose: 1 drop Lorazepam (Ativan) 0.5 mg IVP Q4 PRN PRN Reason: Agitation Magnesium Hydroxide (Milk Of Magnesia) 30 ml PO DAILY PRN PRN Reason: Constipation Methazolamide (Neptazane) 25 mg PO DAILY [facility] Last Admin: 07/14/16 09:12 Dose: 25 mg Multivitamins/Minerals (Therapeutic-M Tab) 1 tab PO DAILY [facility] Last Admin: 07/14/16 09:11 Dose: 1 tab Risperidone (Risperidone Odt 0.25mg) 0.25 mg PO Q8 PRN PRN Reason: Agitation Last Admin: 07/14/16 09:11 Dose: 0.25 mg Tamsulosin HCl (Flomax) 0.4 mg PO DAILY [facility] Last Admin: 07/14/16 09:11 Dose: 0.4 mg Timolol Maleate (Timoptic 0.5% Ophth Soln) 1 drop OU BID [facility] Last Admin: 07/14/16 09:11 Dose: 1 drop Tramadol HCl (Ultram) 50 mg PO Q6 PRN PRN Reason: Pain, moderate (4-7) Last Admin: 07/14/16 02:52 Dose: 50 mg - Labs Labs: 07/12/16 08:30 07/12/16 08:30 - Constitutional Appears: No Acute Distress, Chronically Ill - Head Exam Head Exam: NORMAL INSPECTION - Eye Exam Eye Exam: PERRL - ENT Exam ENT Exam: Normal Exam - Neck Exam Neck Exam: Normal Inspection - Respiratory Exam Respiratory Exam: Rhonchi (few at bases) - Cardiovascular Exam Cardiovascular Exam: REGULAR RHYTHM - GI/Abdominal Exam GI & Abdominal Exam: Soft, Normal Bowel Sounds - Extremities Exam Additional comments: Chronic skin changes L/E - Back Exam Back Exam: NORMAL INSPECTION - Neurological Exam Neurological Exam: Awake Additional comments: Confused, no focal motor/sensory deficit. Generalized weakness. - Psychiatric Exam Additional comments: Confused. - Skin Skin Exam: Warm Assessment and Plan - Assessment and Plan (Free Text) Assessment: AMS PNA UTI Dementia Chronic venous insufficiency BPH Constipation Plan: Improved , stable to be discharged to [facility] , see inst/med sheet
== END 2016-07-14 17:17 | DRG 884 ==
LOC: H.ER 11:57 → H.ERHOLD 17:07 → H.MEDSURG1 21:08
PROVIDERS: ADMIT Internal Medicine Pulmonary Disease; ATTEND Internal Medicine Pulmonary Disease
DX: F03.90 Unspecified dementia, unspecified severity, without behavioral disturbance, psychotic disturbance, mood disturbance, and anxiety (principal); J18.9 Pneumonia, unspecified organism; F05 Delirium due to known physiological condition; N39.0 Urinary tract infection, site not specified; E86.0 Dehydration; H54.8 Legal blindness, as defined in USA; I87.2 Venous insufficiency (chronic) (peripheral); H40.9 Unspecified glaucoma; N40.0 Benign prostatic hyperplasia without lower urinary tract symptoms; K59.09 Other constipation; G89.29 Other chronic pain; Z91.81 History of falling